=== PATIENT | female | born 1990 | race Caucasian/White ===

== ENCOUNTER 2021-09-20 09:27 | Inpatient (IN) | payer OTHER ==
[2021-09-20] MEDS ORDERED: KETOROLAC TROMETHAMINE 30 MG/1 ML VIAL IVPUSH ONE (10:09)
[2021-09-20] MEDS ORDERED: diazePAM CARPU-JECT 10 MG/2 ML DISP.SYRIN IVPUSH ONE (10:21)
[2021-09-20] MEDS ORDERED: KETOROLAC TROMETHAMINE 15 MG/ML VIAL ONE ×2 (10:21→18:33)
[2021-09-20] MEDS ORDERED: diazePAM CARPU-JECT 10 MG/2 ML DISP.SYRIN ONE (10:30)
[2021-09-20 10:41] LABS: BASO % 0.9 % (0-2.0); EOS % 0.9 % (0-4.5); HEMATOCRIT 44.2 % (32.4-45.2); HEMOGLOBIN 15.2 GM/dL (10.7-15.3); LYMPH % 37.7 % (8-40); MCH 32.3 pg (25.7-33.7); MCHC 34.5 g/dl (32.0-36.0); MEAN CELL VOLUME 93.8 fl (80-96); MEAN PLT VOLUME 7.4 fl (7.5-11.1); MONO % 7.3 % (3.8-10.2); NEUT % 53.2 % (42.8-82.8); PLATELET COUNT 241 10^3/uL (134-434); RBC 4.71 M/mm3 (3.60-5.2); WHITE BLOOD COUNT 5.1 K/mm3 (4.0-10.0)
[2021-09-20 11:06] LABS: ALBUMIN 4.2 g/dl (3.4-5.0); BLOOD UREA NITROGEN 16.8 mg/dL (7-18); CALCIUM 9.3 mg/dL (8.5-10.1)
[2021-09-20 11:09] LABS: CREATININE 0.7 mg/dL (0.55-1.3)
[2021-09-20] MEDS ORDERED: HYDROmorphone HCL CARPU-JECT 2 MG/1 ML DISP.SYRIN IVPB ONE (11:10)
[2021-09-20 11:11] LABS: BILIRUBIN,TOTAL 0.3 mg/dL (0.2-1); TOT PROT 7.6 g/dl (6.4-8.2)
[2021-09-20] MEDS ORDERED: HYDROmorphone HCl 2 MG/ML VIAL ONE ×2 (11:22→18:32)
[2021-09-20] MEDS ORDERED: CYCLOBENZAPRINE HCL 5 MG TABLET PO PRN (12:27)
[2021-09-20] MEDS ORDERED: KETOROLAC TROMETHAMINE 15 MG/ML VIAL IVPUSH PRN (12:28)
[2021-09-20] MEDS ORDERED: ACETAMINOPHEN INJECTION 100 ML IVPB ONE (14:05)
[2021-09-20] MEDS: ACETAMINOPHEN 1000 MG/100 ML BAG IVPB PRN (14:19)
[2021-09-20] MEDS ORDERED: propRANOLol HCL 10 MG TABLET PO PRN (17:13)
[2021-09-20] MEDS: HYDROmorphone HCl 2 MG/ML VIAL IVPUSH PRN (18:37)
[2021-09-20] MEDS ORDERED: METOCLOPRAMIDE HCL INJECTION 10 MG/2 ML VIAL IVPB ONE (19:54)
[2021-09-20] MEDS ORDERED: METOCLOPRAMIDE HCL INJECTION 10 MG/2 ML VIAL ONE (19:58)
[2021-09-21] MEDS ORDERED: ONDANSETRON 4 MG/2 ML VIAL IVPUSH PRN ×4 (00:36→14:27)
[2021-09-21] MEDS ORDERED: ACETAMINOPHEN INJECTION 100 ML IVPB ONE (00:55)
[2021-09-21] MEDS: ACETAMINOPHEN 1000 MG/100 ML BAG IVPB PRN (01:00)
[2021-09-21] MEDS ORDERED: HYDROmorphone HCl 2 MG/ML VIAL ONE (08:09)
[2021-09-21] MEDS: HYDROmorphone HCl 2 MG/ML VIAL IVPUSH PRN (08:13)
[2021-09-21 08:18] LABS: HEMATOCRIT 41.6 % (32.4-45.2); HEMOGLOBIN 14.5 GM/dL (10.7-15.3); MCH 32.2 pg (25.7-33.7); MCHC 34.9 g/dl (32.0-36.0); MEAN CELL VOLUME 92.4 fl (80-96); MEAN PLT VOLUME 7.7 fl (7.5-11.1); PLATELET COUNT 222 10^3/uL (134-434); RDW 13.1 % (11.6-15.6); WHITE BLOOD COUNT 3.9 K/mm3 (4.0-10.0)
[2021-09-21 08:28] LABS: INR 1.13 (0.83-1.09)
[2021-09-21 08:32] LABS: CHLORIDE 105 mmol/L (98-107); SODIUM 139 mmol/L (136-145)
[2021-09-21 08:34] LABS: ANION GAP 6 MMOL/L (8-16); BLOOD UREA NITROGEN 10.3 mg/dL (7-18); CO2 28 mmol/L (21-32); GLUCOSE,RANDOM 88 mg/dL (74-106)
[2021-09-21 08:35] LABS: CALCIUM 8.8 mg/dL (8.5-10.1)
[2021-09-21 08:37] LABS: CREATININE 0.5 mg/dL (0.55-1.3)
[2021-09-21] MEDS ORDERED: METHIMAZOLE 5 MG TABLET PO SCH (10:00)
[2021-09-21] MEDS ORDERED: COLCHICINE 0.6 MG TAB PO SCH (10:00)
[2021-09-21] MEDS ORDERED: CEFAZOLIN 2 GM in DEXTROSE 5%-WATER - 100 ML IVPB ONE (10:30)
[2021-09-21] MEDS ORDERED: THROMBIN (BOVINE) 5,000 UNIT VIAL TP ONE ×2 (10:52→12:00)
[2021-09-21] MEDS ORDERED: PROPOFOL 20 ML ONE ×7 (11:25→11:28)
[2021-09-21] MEDS ORDERED: MIDAZOLAM HCL 2 MG/2 ML SINGLE DOSE VIAL ONE ×3 (11:25→14:50)
[2021-09-21] MEDS ORDERED: SUCCINYLCHOLINE CHLORIDE 200 MG/10 ML SYRINGE ONE (11:34)
[2021-09-21] MEDS ORDERED: ceFAZolin SODIUM 1 GM VIAL IVPB ONE ×2 (12:07→12:15)
[2021-09-21] MEDS ORDERED: DEXAMETHASONE SOD PHOSPHATE 4 MG/1 ML VIAL ONE (12:27)
[2021-09-21] MEDS ORDERED: ONDANSETRON 4 MG/2 ML VIAL ONE (12:27)
[2021-09-21] MEDS ORDERED: PROMETHAZINE HCL 25 MG/1 ML VIAL IVPUSH PRN (14:19)
[2021-09-21] MEDS ORDERED: PROMETHAZINE HCL 25 MG/1 ML VIAL IVPB PRN (14:20)
[2021-09-21] MEDS ORDERED: oxyCODONE HCL 5 MG TABLET PO PRN (14:27)
[2021-09-21] MEDS ORDERED: HYDROmorphone *PCA* 10MG/50ML DISP.SYRIN PCA SCH (14:30)
[2021-09-21] MEDS ORDERED: LACTATED RINGERS SOLUTION 1,000 ML/1,000 ML INFUS.BAG IV SCH (14:30)
[2021-09-21] MEDS ORDERED: MIDAZOLAM HCL 2 MG/2 ML SINGLE DOSE VIAL IVPUSH ONE (14:55)
[2021-09-21] MEDS ORDERED: propRANOLol HCL 10 MG TABLET PO PRN (15:12)
[2021-09-21] MEDS ORDERED: CYCLOBENZAPRINE HCL 5 MG TABLET PO PRN (15:12)
[2021-09-21] MEDS ORDERED: ACETAMINOPHEN 1000 MG/100 ML BAG IVPB ONE (16:41)
[2021-09-21] MEDS: ACETAMINOPHEN 500 MG TABLET (FP) PO SCH ×2 (16:50→21:22)
[2021-09-21] MEDS: oxyCODONE HCL 5 MG TABLET PO PRN (17:18)
[2021-09-21] MEDS ORDERED: ceFAZolin SODIUM 1 GM VIAL ONE (21:07)
[2021-09-21] MEDS ORDERED: DEXTROSE 5%-WATER - 50 ML IVPB ONE (21:07)
[2021-09-21] MEDS: CEFAZOLIN 1 GM in DEXTROSE 5%-WATER - 50 ML IVPB SCH (21:23)
[2021-09-21] MEDS: BACLOFEN 10 MG TABLET (FP) PO SCH (21:23)
[2021-09-22] MEDS: oxyCODONE HCL 5 MG TABLET PO PRN ×3 (00:07→19:52)
[2021-09-22] MEDS: CEFAZOLIN 1 GM in DEXTROSE 5%-WATER - 50 ML IVPB SCH (02:10)
[2021-09-22] MEDS ORDERED: DEXTROSE 5%-WATER - 50 ML IVPB ONE (02:10)
[2021-09-22] MEDS ORDERED: ceFAZolin SODIUM 1 GM VIAL ONE (02:10)
[2021-09-22] MEDS: ACETAMINOPHEN 500 MG TABLET (FP) PO SCH ×2 (05:35→10:15)
[2021-09-22] MEDS: BACLOFEN 10 MG TABLET (FP) PO SCH ×3 (05:50→21:01)
[2021-09-22 09:49] LABS: HEMATOCRIT 38.7 % (32.4-45.2); HEMOGLOBIN 13.2 GM/dL (10.7-15.3); MCH 31.6 pg (25.7-33.7); MCHC 34.2 g/dl (32.0-36.0); MEAN CELL VOLUME 92.6 fl (80-96); MEAN PLT VOLUME 8.1 fl (7.5-11.1); PLATELET COUNT 223 10^3/uL (134-434); RBC 4.18 M/mm3 (3.60-5.2); RDW 12.6 % (11.6-15.6)
[2021-09-22 10:10] LABS: BLOOD UREA NITROGEN 9.8 mg/dL (7-18); CALCIUM 8.3 mg/dL (8.5-10.1)
[2021-09-22 10:14] LABS: CREATININE 0.8 mg/dL (0.55-1.3)
[2021-09-22] MEDS: METHIMAZOLE 5 MG TABLET PO SCH (10:14)
[2021-09-22] MEDS: COLCHICINE 0.6 MG TAB PO SCH (10:15)
[2021-09-22] MEDS ORDERED: ACETAMINOPHEN 325 MG TABLET (FP) PO PRN ×3 (12:43→20:00)
[2021-09-22 16:48] VITALS: BMI 18.2
[2021-09-22] MEDS ORDERED: ACETAMINOPHEN 325 MG TABLET (FP) ONE (17:22)
[2021-09-23] MEDS: oxyCODONE HCL 5 MG TABLET PO PRN (05:41)
[2021-09-23] MEDS: BACLOFEN 10 MG TABLET (FP) PO SCH ×3 (05:42→21:19)
[2021-09-23] MEDS ORDERED: ceFAZolin SODIUM 1 GM VIAL ONE (07:24)
[2021-09-23] MEDS ORDERED: ACETAMINOPHEN INJECTION 100 ML IVPB ONE (07:25)
[2021-09-23] MEDS ORDERED: DEXMEDETOMIDINE HCL 200 MCG/2 ML IVPB ONE (07:25)
[2021-09-23] MEDS ORDERED: VANCOMYCIN 1,000 MG VIAL (RESTRICTED TO ID ONLY) ONE (08:29)
[2021-09-23] MEDS ORDERED: POLYETHYLENE GLYCOL (HEALTHYLAX) 3350 17 GM PACKET PO SCH (10:00)
[2021-09-23] MEDS ORDERED: ceFAZolin SODIUM 1 GM VIAL IVPB ONE ×2 (11:50→12:16)
[2021-09-23] MEDS ORDERED: ONDANSETRON 4 MG/2 ML VIAL IVPUSH PRN ×2 (14:14→15:18)
[2021-09-23] MEDS ORDERED: LACTATED RINGERS SOLUTION 1,000 ML IV SCH (14:15)
[2021-09-23] MEDS ORDERED: CYCLOBENZAPRINE HCL 5 MG TABLET PO PRN (15:18)
[2021-09-23] MEDS ORDERED: propRANOLol HCL 10 MG TABLET PO PRN (15:18)
[2021-09-23] MEDS ORDERED: ACETAMINOPHEN 325 MG TABLET (FP) PO PRN (15:18)
[2021-09-23] MEDS ORDERED: oxyCODONE HCL 5 MG TABLET PO PRN ×2 (15:18)
[2021-09-23] MEDS: METHIMAZOLE 5 MG TABLET PO SCH (15:23)
[2021-09-23] MEDS: COLCHICINE 0.6 MG TAB PO SCH (15:23)
[2021-09-23] MEDS ORDERED: HYDROmorphone *PCA* 10MG/50ML DISP.SYRIN ONE (15:52)
[2021-09-23] MEDS ORDERED: HYDROmorphone *PCA* 10MG/50ML DISP.SYRIN PCA SCH (16:00)
[2021-09-23] MEDS: LACTATED RINGERS SOLUTION 1,000 ML IV SCH (16:00)
[2021-09-23] MEDS ORDERED: POLYETHYLENE GLYCOL (HEALTHYLAX) 3350 17 GM PACKET PO ONE (18:45)
[2021-09-23] MEDS ORDERED: ONDANSETRON 4 MG/2 ML VIAL IVPB PRN (23:54)
[2021-09-24] MEDS ORDERED: ONDANSETRON 4 MG/2 ML VIAL IVPUSH PRN (00:01)
[2021-09-24] MEDS: LACTATED RINGERS SOLUTION 1,000 ML IV SCH ×2 (00:05→08:30)
[2021-09-24] MEDS: BACLOFEN 10 MG TABLET (FP) PO SCH (05:54)
[2021-09-24] MEDS ORDERED: COLCHICINE 0.6 MG TAB PO SCH (10:00)
[2021-09-24] MEDS ORDERED: METHIMAZOLE 5 MG TABLET PO SCH (10:00)
[2021-09-24] MEDS ORDERED: POLYETHYLENE GLYCOL (HEALTHYLAX) 3350 17 GM PACKET PO SCH (10:00)
[2021-09-24 10:51] LABS: BASO % 0.1 % (0-2.0); HEMATOCRIT 41.6 % (32.4-45.2); LYMPH % 14.7 % (8-40); MCH 31.6 pg (25.7-33.7); MCHC 33.6 g/dl (32.0-36.0); MEAN CELL VOLUME 94.1 fl (80-96); MEAN PLT VOLUME 8.3 fl (7.5-11.1); MONO % 10.1 % (3.8-10.2); NEUT % 75.1 % (42.8-82.8); PLATELET COUNT 234 10^3/uL (134-434); RBC 4.42 M/mm3 (3.60-5.2); RDW 12.4 % (11.6-15.6)
[2021-09-24 11:03] LABS: BLOOD UREA NITROGEN 5.4 mg/dL (7-18); MAGNESIUM 2.2 mg/dL (1.8-2.4)
[2021-09-24 11:06] LABS: CREATININE 0.6 mg/dL (0.55-1.3); PHOSPHOROUS 3.1 mg/dL (2.5-4.9)
[2021-09-24 11:07] LABS: BILIRUBIN,TOTAL 0.8 mg/dL (0.2-1); TOT PROT 6.9 g/dl (6.4-8.2)
[2021-09-24 11:09] LABS: ALBUMIN 3.3 g/dl (3.4-5.0)
[2021-09-24 11:27] VITALS: BP 123/78; TEMP 98.4
[2021-09-24 12:50] VITALS: PULSE 99; RESP 18
== END 2021-09-24 13:20 | disposition left against medical advice (07) | DRG 29 ==
LOC: JER 09:27 → JERFT 09:27 → JERBED 12:00 → J6S 09-21 16:27
PROVIDERS: ADMIT Internal Medicine; ATTEND Internal Medicine
PROC: 0RT30ZZ Resection of Cervical Vertebral Disc, Open Approach (ICD-10-PCS; 2021-09-21)
PROC: 01N10ZZ Release Cervical Nerve, Open Approach (ICD-10-PCS; 2021-09-21)
PROC: 0RG4071 Fusion of Cervicothoracic Vertebral Joint with Autologous Tissue Substitute, Posterior Approach, Posterior Column, Open Approach (ICD-10-PCS; 2021-09-21)
PROC: 0RT90ZZ Resection of Thoracic Vertebral Disc, Open Approach (ICD-10-PCS; 2021-09-21)
PROC: 01N80ZZ Release Thoracic Nerve, Open Approach (ICD-10-PCS; 2021-09-21)
PROC: 0RP104Z Removal of Internal Fixation Device from Cervical Vertebral Joint, Open Approach (ICD-10-PCS; 2021-09-21)
PROC: 0RP404Z Removal of Internal Fixation Device from Cervicothoracic Vertebral Joint, Open Approach (ICD-10-PCS; 2021-09-21)
PROC: 4A10X4G Monitoring of Central Nervous Electrical Activity, Intraoperative, External Approach (ICD-10-PCS; 2021-09-21)
PROC: 0RG40A0 Fusion of Cervicothoracic Vertebral Joint with Interbody Fusion Device, Anterior Approach, Anterior Column, Open Approach (ICD-10-PCS; principal; 2021-09-21 11:00)
PROC: 0RG1071 Fusion of Cervical Vertebral Joint with Autologous Tissue Substitute, Posterior Approach, Posterior Column, Open Approach (ICD-10-PCS; 2021-09-23)
PROC: 4A10X4G Monitoring of Central Nervous Electrical Activity, Intraoperative, External Approach (ICD-10-PCS; 2021-09-23)
DX: M54.12 Radiculopathy, cervical region (principal); M35.2 Behcet's disease; M96.0 Pseudarthrosis after fusion or arthrodesis; M54.13 Radiculopathy, cervicothoracic region; E05.00 Thyrotoxicosis with diffuse goiter without thyrotoxic crisis or storm; F41.9 Anxiety disorder, unspecified; F12.90 Cannabis use, unspecified, uncomplicated; Y83.8 Other surgical procedures as the cause of abnormal reaction of the patient, or of later complication, without mention of misadventure at the time of the procedure
CPT/HCPCS: 36415; 71046-TC-FY; 72141-TC; 76000-TC-FY; 80048; 80053; 81003; 83735; 84100; 84439; 84443; 84702; 85025; 85027; 85610; 86850; 86900; 86901; 93005; 93010; 94010; 94760; 97116-GP; 97161-GP; 99285-25; C9803-CS; J0475; U0003; U0005

== ENCOUNTER 2022-05-13 04:07 | Day surgery (SDC) | payer OTHER ==
[2022-05-11 11:27] VITALS: BMI 18.3
[~2022-05-13 04:07] MED LIST: LIDOCAINE 1% P/F 10 MG/ML VIAL PNB ONE; LIDOCAINE HCL/PF 2% SDV 5ML VIAL PNB ONE
[2022-05-13] MEDS ORDERED: LIDOCAINE HCL/PF 2% SDV 5ML VIAL ONE (07:22)
[2022-05-13] MEDS ORDERED: LIDOCAINE HCL/PF 1% SDV 5ML VIAL ONE (07:23)
[2022-05-13 07:47] VITALS: RESP 18
[2022-05-13] MEDS ORDERED: LIDOCAINE 1% P/F 10 MG/ML VIAL PNB ONE ×2 (09:09)
[2022-05-13] MEDS ORDERED: ACETAMINOPHEN 325 MG TABLET (FP) ONE (09:54)
[2022-05-13] MEDS ORDERED: ACETAMINOPHEN 325 MG TABLET (FP) PO ONE (09:56)
[2022-05-13 12:39] VITALS: BP 129/76; PULSE 73; TEMP 98
== END 2022-05-13 11:10 | disposition home or self-care (01) ==
LOC: JASU-SURG 04:07
PROVIDERS: ATTEND Pain Medicine Pain Medicine
PROC: 01HY3MZ Insertion of Neurostimulator Lead into Peripheral Nerve, Percutaneous Approach (ICD-10-PCS; principal; 2022-05-13 09:00)
DX: G89.4 Chronic pain syndrome (principal); M54.2 Cervicalgia
CPT/HCPCS: 64555; C1778; 76000-TC-FY; 81025